=== PATIENT | female | born 1995 | race Caucasian/White ===

== ENCOUNTER 2018-12-12 19:56 | Emergency (ER) | payer SELFPAY ==
[2018-12-12 20:06] VITALS: BP 137/104
--- NOTE | 2018-12-12 21:35 | Emergency Department Report ---
Blank Doc - Documentation Documentation: 23 y/o female c/o lower abd pain times 1 week with the last 2 day the worst. N ausea no vomiting. No vaginal discharge. LMP 12/07/18.
[2018-12-13 00:53] LABS: Bacteria,Urine 1+ /HPF (Negative); Bilirubin,Urine NEG (Negative); Blood,Urine SM (Negative); Color,Urine Yellow (Yellow); Hyaline Casts,Urine 3 /LPF; Mucus,Urine 3+ /HPF; Urobilinogen,Urine < 2.0 mg/dL (<2.0)
[2018-12-13 01:09] LABS: HCG Qualitative,Urine Negative (Negative)
== END 2018-12-13 04:49 | disposition left against medical advice (07) ==
LOC: ED 19:56
DX: R10.9 Unspecified abdominal pain (principal); R11.0 Nausea; Z53.21 Procedure and treatment not carried out due to patient leaving prior to being seen by health care provider
CPT/HCPCS: 81001; 81025